=== PATIENT | female | born 1960 | race Caucasian/White ===

== ENCOUNTER → 2018-11-04 | Outpatient (CLI) | payer OTHER, MEDICARE ==
[~2018-11-04] MED LIST: ASPIR 8181 M1 PO; CIPROFLOXACIN500 M1 PO; DIABETA 5MG TABL5 MG; FORTAMET500 MG; GARCINIA CAMBO1 EACH; GLUCOPHAGE XR500 MG PO; GLYBURIDE MICRON6 MG PO; GLYNASE6 MG; HYDROCHLOROTHIA25 M2; LEVOTHYROXIN0.125 M1; LEVOTHYROXINE 0.15MG PO; LIPITOR10 MG PO; LOSARTAN POTAS100 MG PO; METOPROLOL SUCC50 MG PO; NORCO 5-325 TA1 EACH; PROAIR HFA8.5 GM INH; PROZAC20 MG; PYRIDIUM200 MG PO; ZEBETA10 MG; ZIAC 10/6.25 MG10 MG PO
== END ==
LOC: M.ULTRA 15:30
DX: R22.1 Localized swelling, mass and lump, neck (principal)

== ENCOUNTER 2019-07-08 05:18 | Emergency (ER) | payer OTHER, MEDICARE ==
[~2019-07-08] VITALS: Ht 157.5 cm; Wt 165.6 kg
[2019-07-08] MEDS ORDERED: SYMBICORT160 MCG/4. (05:36)
[2019-07-08] MEDS ORDERED: SYNTHROID175 MCG PO (05:37)
[2019-07-08] MEDS ORDERED: PROZAC20 M1 PO (05:37)
[2019-07-08] MEDS ORDERED: MONTELUKAST PO (05:38)
[2019-07-08] MEDS ORDERED: PROTONIX40 M2 PO (05:39)
[2019-07-08] MEDS ORDERED: AMLODIPINE BESY10 MG PO (05:40)
[2019-07-08] MEDS ORDERED: STEGLATRO15 MG PO (05:40)
[2019-07-08 06:10] LABS: ABSOLUTE BASOPHILS 0.1 thou/uL (0.0-0.2); ABSOLUTE EOSINOPHILS 0.4 thou/uL (0.0-0.7); ABSOLUTE LYMPHOCYTES 2.3 thou/uL (0.8-5.3); ABSOLUTE MONOCYTES 0.6 thou/uL (0.0-1.2); ABSOLUTE NEUTROPHILS 9.5 thou/uL (1.6-8.1); BASOPHILS 0.9 %; EOSINOPHILS 2.8 %; HEMATOCRIT 33.4 % (37.0-47.0); HEMOGLOBIN 11.1 gm/dL (12.0-15.0); LYMPHOCYTES 17.5 %; MCH 28.5 pg (26.0-34.0); MCHC 33.3 g/dL (28.0-37.0); MCV 85.6 fL (80.0-100.0); MONOCYTES 4.7 %; MPV 6.7 fl. (7.2-11.1); NUCLEATED RBCS 0 /100WBC; PLATELET COUNT* 326 thou/uL (150-400); POLYS 74.1 %; RDW-CV 16.6 % (10.5-14.5); WBC 12.9 thou/uL (4.0-11.0)
[2019-07-08 06:24] LABS: CALCIUM 8.2 mg/dL (8.5-10.1); CREATININE 0.9 mg/dL (0.6-1.3); POTASSIUM 3.6 mmol/L (3.5-5.1)
[2019-07-08 06:34] LABS: ALBUMIN 3.2 g/dL (3.4-5.0); TOTAL BILIRUBIN 0.6 mg/dL (<0.1-1.0); TOTAL PROTEIN 7.6 g/dL (6.4-8.2)
[2019-07-08 07:02] LABS: APTT 28.1 Seconds (25.0-31.3); PROTIME 10.5 Seconds (9.20-11.50)
[2019-07-08 08:51] LABS: URINE BILIRUBIN NEGATIVE (Negative); URINE BLOOD NEGATIVE (Negative); URINE CLARITY CLEAR; URINE COLOR YELLOW; URINE GLUCOSE-RANDOM NEGATIVE (Negative); URINE KETONES NEGATIVE (Negative); URINE LEUKOCYTES-REFLEX NEGATIVE (Negative); URINE NITRITE-REFLEX NEGATIVE (Negative); URINE PROTEIN 1+ (Negative); URINE UROBILINOGEN 0.2 E.U./dl (0.2-1.0)
[2019-07-08] MEDS ORDERED: MEDROLDOSEPACK PO (10:05)
[2019-07-08] MEDS ORDERED: AMOXICILLIN875 MG PO (10:05)
[2019-07-08 11:54] VITALS: BP 163/62
--- NOTE | 2019-07-08 13:57 | EKG ---
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
== END 2019-07-08 11:55 | disposition still patient (30) ==
LOC: M.ERS 05:18
PROVIDERS: Family Medicine; Personal Emergency Response Attendant
DX: J44.1 Chronic obstructive pulmonary disease with (acute) exacerbation (principal); R59.9 Enlarged lymph nodes, unspecified; I10 Essential (primary) hypertension; E03.9 Hypothyroidism, unspecified; Z98.890 Other specified postprocedural states; Z88.1 Allergy status to other antibiotic agents; Z98.51 Tubal ligation status; Z88.8 Allergy status to other drugs, medicaments and biological substances

== ENCOUNTER 2019-07-10 06:16 | Inpatient (IN) | payer OTHER, MEDICARE ==
[~2019-07-10] VITALS: Ht 157.5 cm; Wt 172.3 kg
[~2019-07-10 06:16] MED LIST changes: +AMLODIPINE BESY10 MG PO; +AMOXICILLIN875 MG PO; +MEDROLDOSEPACK PO; +MONTELUKAST PO; +PROTONIX40 M2 PO; +PROZAC20 M1 PO; +STEGLATRO15 MG PO; +SYMBICORT160 MCG/4.; +SYNTHROID175 MCG PO
[2019-07-10 06:22] VITALS: BP 171/65
[2019-07-10 07:57] LABS: HEMATOCRIT 32.7 % (37.0-47.0); HEMOGLOBIN 10.9 gm/dL (12.0-15.0); MCH 28.8 pg (26.0-34.0); MCHC 33.5 g/dL (28.0-37.0); MCV 86.1 fL (80.0-100.0); MPV 6.7 fl. (7.2-11.1); NUCLEATED RBCS 0 /100WBC; PLATELET COUNT* 355 thou/uL (150-400); RBC 3.79 mil/uL (4.20-5.00); RDW-CV 16.2 % (10.5-14.5); WBC 16.8 thou/uL (4.0-11.0)
[2019-07-10 08:03] LABS: BE 0.6 mmol/L (-2 to +3); PCO2 37.8 mmHg (35.0-45.0); PO2 81.8 mmHg (75.0-100.0); pH 7.434 (7.340-7.450)
[2019-07-10 08:05] LABS: APTT 24.7 Seconds (25.0-31.3); CALCIUM 8.1 mg/dL (8.5-10.1); CREATININE 0.9 mg/dL (0.6-1.3); INR 1.1; PROTIME 10.8 Seconds (9.20-11.50)
[2019-07-10 08:17] LABS: ALBUMIN 3.3 g/dL (3.4-5.0); CK-MB MASS 1.8 ng/mL (<0.5-3.6); MAGNESIUM 1.6 mg/dL (1.8-2.4); TOTAL BILIRUBIN 0.6 mg/dL (<0.1-1.0); TOTAL PROTEIN 7.5 g/dL (6.4-8.2)
[2019-07-10 08:32] LABS: ABSOLUTE EOSINOPHILS 0.2 thou/uL (0.0-0.7); ABSOLUTE LYMPHOCYTES 2.4 thou/uL (0.8-5.3); ABSOLUTE MONOCYTES 0.3 thou/uL (0.0-1.2); ABSOLUTE NEUTROPHILS 13.9 thou/uL (1.6-8.1); PLATELET ESTIMATE ADEQUATE
--- NOTE | 2019-07-10 09:46 | EKG ---
[place] [address] ELECTROCARDIOGRAM REPORT Name: RADHA GREENE Room: [facility]#: [id number] Admission: 07/10/19 Attend Phys: Discharge: Date of : 56 Date of Service: 07/10/19621 Report #: [id number] THIS REPORT FOR: //name// 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
[2019-07-10 10:38] LABS: URINE BILIRUBIN NEGATIVE (Negative); URINE BLOOD NEGATIVE (Negative); URINE CLARITY CLEAR; URINE COLOR YELLOW; URINE GLUCOSE-RANDOM NEGATIVE (Negative); URINE KETONES NEGATIVE (Negative); URINE LEUKOCYTES-REFLEX NEGATIVE (Negative); URINE NITRITE-REFLEX NEGATIVE (Negative); URINE PROTEIN 2+ (Negative); URINE SPECIFIC GRAVITY >= 1.030 (1.005-1.030); URINE UROBILINOGEN 0.2 E.U./dl (0.2-1.0)
[2019-07-10 11:04] LABS: BACTERIA-REFLEX 1-9 Few /HPF (None Seen); CASTS None Seen /LPF (None Seen); CRYSTALS None Seen /LPF (None Seen); SQUAMOUS 0-3 Few /LPF (0-3); URINE RBC 0-2 Rare /HPF (0-2); URINE WBC-REFLEX 0-5 Rare /HPF (0-5)
[2019-07-10 19:49] VITALS: BP 161/65
[2019-07-10 20:12] VITALS: BP 167/62
[2019-07-10 20:30] VITALS: BP 171/75
[2019-07-11] VITALS (8 sets, daily range): BP systolic 104–182; BP diastolic 51–73
[2019-07-11 04:42] LABS: HEMATOCRIT 31.8 % (37.0-47.0); HEMOGLOBIN 10.7 gm/dL (12.0-15.0); MCH 28.8 pg (26.0-34.0); MCHC 33.6 g/dL (28.0-37.0); MCV 85.7 fL (80.0-100.0); MPV 6.6 fl. (7.2-11.1); RBC 3.71 mil/uL (4.20-5.00); RDW-CV 16.2 % (10.5-14.5); WBC 15.3 thou/uL (4.0-11.0)
[2019-07-11 04:53] LABS: CALCIUM 8.3 mg/dL (8.5-10.1); CREATININE 0.9 mg/dL (0.6-1.3); MAGNESIUM 1.6 mg/dL (1.8-2.4)
--- NOTE | 2019-07-11 05:16 | NUR ---
RECEIVED REPORT FROM ED RN. PT TRANSFERRED TO RM 205. PT A&OX4. SEAM SEWER IN PLACE. VSS. PHYSICAL ASSESSMENT COMPLETED AND CHARTED. PT ON O2 AT 2L NC. PT TRACING SR ON TELE. PT UPSTANDBY. PT COMPLAINED OF SOA. O2 SAT 95%-DR BELL MADE AWARE WITH NEW ORDERS. CALL LIGHT WITHIN REACH.
[2019-07-11] MEDS ORDERED: TRULICITY1.5 MG/0.5 SUBQ (06:38)
--- NOTE | 2019-07-11 19:10 | NUR ---
PATIENT RESTING IN BED. UP AD ALEXANDER IN ROOM. AOX4. 2L PER NASAL CANULA. CLEAR LUNG SOUNDS WITH ODCCATIONAL WHEEZES. VSS AND PATINET IN NO APPARENT SIGNS OF DISTRESS T THIS TIME. HOURLY ROUDNING COMPETED FOR PATIENT SAFETY
[2019-07-12 04:50] VITALS: BP 124/61
[2019-07-12 04:51] LABS: HEMATOCRIT 30.7 % (37.0-47.0); HEMOGLOBIN 10.4 gm/dL (12.0-15.0); MCHC 33.8 g/dL (28.0-37.0); MCV 85.6 fL (80.0-100.0); MPV 6.8 fl. (7.2-11.1); RBC 3.59 mil/uL (4.20-5.00); RDW-CV 16.4 % (10.5-14.5); WBC 16.6 thou/uL (4.0-11.0)
[2019-07-12 05:25] LABS: CALCIUM 8.5 mg/dL (8.5-10.1); CREATININE 0.8 mg/dL (0.6-1.3); MAGNESIUM 2.2 mg/dL (1.8-2.4); POTASSIUM 3.8 mmol/L (3.5-5.1)
--- NOTE | 2019-07-12 05:44 | NUR ---
ASSUMED CARE OF PT AFTER REPORT AT 1930. PT A&OX4. VSS. PHYSICAL ASSESSMENT COMPLETED AND CHARTED. PT ON RA. PT TRACING SR/SB ON TELE. PT UPADLIB TO RESTROOM. PT DENIES ANY PAIN OR DISCOMFORT. PT ABLE TO SLEEP WELL ON BED. CALL LIGHT WITHIN REACH.
[2019-07-12 08:00] VITALS: BP 175/60
[2019-07-12 12:03] VITALS: BP 167/69
--- NOTE | 2019-07-12 17:59 | NUR ---
PT TRANSFERRED TO UNIT. I AGREE WITH MORNING ASSESSMENT. WILL CONTINUE TO MONITOR.
[2019-07-12 19:38] VITALS: BP 145/71
[2019-07-13 04:00] VITALS: BP 188/90
--- NOTE | 2019-07-13 05:46 | NUR ---
PATIENT HAS REMAINED ALERT AND ORIENTED X 4 THROUGHOUT THE SHIFT AND RESTING QUIETLY ON HOURLY ROUNDS. UP INDEPENDENTLY IN THE ROOM. PATIENT STATING DOING MUCH BETTER AND HOPES TO GO HOME SOON. RT TX PER ORDER. SOME SHORTNESS OF AIR WITH ACTIVITY BUT RESOLVES QUICKLY AT REST AND NO WHEEZING. VITAL SIGNS STABLE. HTN NOTED EARLY AM BUT THESE WERE TAKEN JUST AFTER RT TX AND ACTIVITY. CONTINUE TO MONITOR.
[2019-07-13 07:20] VITALS: BP 159/68
[2019-07-13 08:57] VITALS: BP 159/68
[2019-07-13 12:37] VITALS: BP 159/68
[2019-07-13] MEDS ORDERED: LEVAQUIN 500 M500 M3 PO (12:40)
[2019-07-13] MEDS ORDERED: PREDNISONE 5 MG5 M1 PO (12:42)
[2019-07-13 13:44] VITALS: BP 159/68
--- NOTE | 2019-07-13 13:45 | NUR ---
PT GIVEN DISCHARGE INFORMATION, CARE NOTES, AND PRESCRIPTIONS. IV REMOVED. PT DENIED ANY QUESTIONS OR CONCERNS AT THIS TIME. PT BELONGINGS GATHERED. PT LEFT VIA WHEELCHAIR WITH NURSING STAFF TO HOME. FALL RISK PRECAUTIONS IN PLACE. HOURLY ROUNDING COMPLETED.
[2019-07-13 13:50] LABS: ABSOLUTE MONOCYTES 0.4 thou/uL (0.0-1.2); ABSOLUTE NEUTROPHILS 14.3 thou/uL (1.6-8.1); BASOPHILS 0.2 %; EOSINOPHILS 0.1 %; HEMATOCRIT 33.5 % (37.0-47.0); HEMOGLOBIN 11.1 gm/dL (12.0-15.0); LYMPHOCYTES 6.3 %; MCH 28.6 pg (26.0-34.0); MCV 86.4 fL (80.0-100.0); MONOCYTES 2.7 %; MPV 7.1 fl. (7.2-11.1); NUCLEATED RBCS 0 /100WBC; PLATELET COUNT* 363 thou/uL (150-400); POLYS 90.7 %; RBC 3.88 mil/uL (4.20-5.00); RDW-CV 16.7 % (10.5-14.5); WBC 15.7 thou/uL (4.0-11.0)
[2019-07-13 14:12] LABS: ALBUMIN 3.4 g/dL (3.4-5.0); CALCIUM 8.5 mg/dL (8.5-10.1); POTASSIUM 3.8 mmol/L (3.5-5.1); TOTAL BILIRUBIN 0.4 mg/dL (<0.1-1.0); TOTAL PROTEIN 7.5 g/dL (6.4-8.2)
== END 2019-07-13 13:46 | disposition home or self-care (01) | DRG 177 ==
LOC: M.ERS 06:16 → M.TBA-ER 09:53 → M.ORTHSURG 09:53 → M.2W 20:52 → M.ORTHSURG 07-12 17:49
PROVIDERS: Emergency Medicine Emergency Medical Services; Internal Medicine; Personal Emergency Response Attendant; ADMIT Internal Medicine
DX: J15.6 Pneumonia due to other Gram-negative bacteria (principal); J96.01 Acute respiratory failure with hypoxia; J44.1 Chronic obstructive pulmonary disease with (acute) exacerbation; E87.2 Acidosis; Z68.44 Body mass index [BMI] 60.0-69.9, adult; J44.0 Chronic obstructive pulmonary disease with (acute) lower respiratory infection; E11.9 Type 2 diabetes mellitus without complications; I10 Essential (primary) hypertension; E66.01 Morbid (severe) obesity due to excess calories; R53.81 Other malaise; M47.9 Spondylosis, unspecified; E03.9 Hypothyroidism, unspecified; F32.9 Major depressive disorder, single episode, unspecified; Z98.891 History of uterine scar from previous surgery; Z79.84 Long term (current) use of oral hypoglycemic drugs; Z79.82 Long term (current) use of aspirin; Z79.899 Other long term (current) drug therapy; Z88.8 Allergy status to other drugs, medicaments and biological substances; Z99.3 Dependence on wheelchair

== ENCOUNTER 2019-10-05 06:27 | Observation (INO) | payer OTHER, MEDICARE ==
[~2019-10-05] VITALS: Ht 152.4 cm; Wt 161.0 kg
--- NOTE | ~2019-10-05 | OP ---
[address] [address] OPERATIVE REPORT Name: RADHA GREENE Room: [facility].#: [id number] Admission: 10/05/19 Attend Phys: Kelvin Jacome DO Discharge: Date of : 56 Report #: [id number] THIS REPORT FOR: //name// cc: BEV RAMOS KEVIN ~ THIS REPORT FOR: //name// CC: Kelvin RAMOS DICTATED BY: Chandrakant Mendoza DO DATE OF SERVICE: 10/05/2019 PREOPERATIVE DIAGNOSES: Biliary dyskinesia with chronic cholecystitis and morbid obesity with a body mass index of 65.5. POSTOPERATIVE DIAGNOSES: Biliary dyskinesia with chronic cholecystitis and morbid obesity with a body mass index of 65.5. SURGEON: Kelvin Jacome DO CO-SURGEON: Colton Mendoza, PGY-5 TACTICAL/MOBILE WATCH OFFICER: Papito Duran, PGY-1. OPERATION PERFORMED: Laparoscopic cholecystectomy with immunofluorescence imaging. ANESTHESIA: General and regional TAP blocks. ESTIMATED BLOOD LOSS: 20 mL. SPECIMENS REMOVED: Gallbladder and contents. COMPLICATIONS: None. DISPOSITION: PACU and then likely discharged home. DESCRIPTION OF PROCEDURE: After appropriate consents were obtained, this patient was taken to the operating room and laid in a supine position. She had SCDs placed on her bilateral lower extremities and 2 safety straps placed across her lap. There was a footboard placed in the bed to help secure for positioning. We also taped her lower legs with a silk tape as well as taped her chest with silk tape. Her arms and wrists were placed out her sides and secured as well. The patient was sedated and intubated [place] [address] OPERATIVE REPORT Name: RADHA GREENE Room: [facility]#: [id number] Admission: 10/05/19 Attend Phys: Kelvin Jacome, DO Discharge: Date of : 56 Report #: [id number]. Her abdomen was then exposed and the anesthesiologist placed bilateral TAP blocks with ease. Her abdomen was then prepped and draped in a standard sterile fashion. A timeout was performed to correctly identify the patient and procedure. She was given perioperative antibiotics at this time. We started by making a supraumbilical midline incision using a #11 blade scalpel. This was carried down through subcutaneous tissue bluntly to encounter the anterior abdominal wall fascia. Once the fascia was encountered, it was scored using electrocautery and grasped between 2 Katina clamps. The peritoneum was then grasped between 2 hemostats and incised sharply using Metzenbaum scissors. We entered into the patient's abdominal cavity bluntly after this. At this point, we placed 2 separate 0 Vicryl stitches at the superior and inferior aspect of her fascial incision. The Edu trocar was then introduced into the patient's abdomen and her abdomen was insufflated to 15 mmHg. We did initial inspection and the patient appeared to have some adhesions to the anterior abdominal wall near our Edu trocar. We elected to place a 5 mm subxiphoid port, which was placed under direct visualization. Once this was placed, we changed the camera into this subxiphoid port and able to visualize the adhesions to anterior abdominal wall in the lower aspect of her abdomen. We then placed 2 right-sided lateral abdominal ports both as well as 5 mm and under direct visualization. Using electrocautery and blunt dissection, we were able to takedown these adhesions on the anterior abdominal wall. At this point, we elevated the liver and placed the patient's head up, left side down position. Once the liver was elevated, we were easily able to see the gallbladder, which appeared to be chronically inflamed as well as having significant cholesterolosis of the wall of the gallbladder. It was grasped and retracted cephalad anteriorly. She had excessive amount of intra-abdominal omentum and with her stomach was somewhat insufflated, so we asked Anesthesia to place an OG tube with good success of a decrease in the size of the stomach. We started on the gallbladder near Maribel's pouch. As the Maribel's pouch was grasped and retracted medially and we started on the lateral aspect of the gallbladder. We made a small incision in the peritoneum overlying the gallbladder and this was taken cephalad until we were able to see the lateral side of the cystic duct. Once we were able to identify the lateral side of the cystic duct, we dissected it out completely and confirmed it using immunofluorescence imaging. We could easily see the gallbladder in light of green as well as the cystic duct. The cystic duct was going directly into the gallbladder and common bile duct as well below this. We then turned our attention more medially and we were able to dissect out the medial side of the cystic duct and skeletonized it completely. Just medial to this, we did see artery coursing along the gallbladder and we were able to dissect it out as well. Once the cystic artery was skeletonized as well, we were able to easily visualize our critical view of safety. Once the critical view of safety was obtained and confirmed using immunofluorescent screen, we placed 2 clips proximally and 1 clip distally on the cystic duct and 1 clip proximally and 1 clip distally on the cystic artery. Both these structures then incised using laparoscopic scissors. The gallbladder was removed from the liver bed carefully using electrocautery. Any minimal amount [facility] [address] [place] [address] OPERATIVE REPORT Name: RADHA GREENE Room: [facility].#: [id number] Admission: 10/05/19 Attend Phys: Kelvin Jacome DO Discharge: Date of : 56 Report #: [id number] of bleeding that was present from the liver bed was adequately controlled using electrocautery. Once the gallbladder was completely removed from the liver bed, it was placed within the EndoCatch pouch. We did a reinspection of our liver bed as well as our clips. There was no further bleeding from the liver bed and our clips appeared to be in place and intact. There was no oozing or bleeding from the cystic duct or cystic artery at this time. The liver was allowed to return to normal anatomical position and we placed omentum within the gallbladder fossa. All of our trocars were then removed under direct visualization. There was no oozing or bleeding from either trocar sites at this point. The patient's abdomen was allowed to completely desufflate and we removed the Edu trocar and then the gallbladder within EndoCatch pouch from the supraumbilical incision site. This was passed off as specimen to be sent to Pathology for further review. The previously placed 0 Vicryl stitches were used as retraction sutures in order to elevate the fascia and we placed 2 separate [id number]-[id number] 0 Vicryl stitches within the fascia and reapproximated. The previously placed 0 Vicryl sutures were then tied down as well. These were all cut and we achieved adequate reapproximation of the anterior abdominal wall fascia. The subcutaneous tissue was closed using a 3-0 Vicryl stitch in an inverted interrupted fashion. The skin was closed using a running 4-0 Monocryl suture in a subcuticular fashion. The skin incisions that were remaining were the port sites and these were also closed using the same 4-0 Monocryl stitch in an inverted interrupted fashion. The patient's abdomen was cleaned and dried adequately. We placed skin glue to act as a dressing and the patient was allowed to awake and subsequently extubated in the OR without difficulty. Dr. Jacome was present and scrubbed for entire procedure. All counts were correct x 2 at the end of this procedure. By: [id number] Jacome DO /nt
[~2019-10-05 06:27] MED LIST changes: +BENTYL 20 MG TA20 M1 PO; +LANTUS SUBQ; +LEVAQUIN 500 M500 M3 PO; +PREDNISONE 5 MG5 M1 PO; +TRULICITY1.5 MG/0.5 SUBQ
[2019-10-05 06:50] LABS: HEMATOCRIT 40.5 % (37.0-47.0); HEMOGLOBIN 13.4 gm/dL (12.0-15.0); MCHC 33.1 g/dL (28.0-37.0); MCV 84.5 fL (80.0-100.0); MPV 6.9 fl. (7.2-11.1); RBC 4.8 mil/uL (4.20-5.00); RDW-CV 14.9 % (10.5-14.5); WBC 13.5 thou/uL (4.0-11.0)
[2019-10-05 06:56] LABS: CALCIUM 8.7 mg/dL (8.5-10.1); POTASSIUM 4.1 mmol/L (3.5-5.1)
[2019-10-05] MEDS ORDERED: OXYCODONE HCL 55 MG PO (10:04)
[2019-10-05 16:22] VITALS: BP 139/64
--- NOTE | 2019-10-05 17:19 | NUR ---
PT A&Ox4. VITALS STABLE. IV PATENT. PAIN CONTROLLED. TOLERATING FOOD. UP WITH STB ASSIST. ON 1LO2 AND CAPNO. LAP SITES C/D/I. PILLOW USED FOR COMPRESSION. POSSIBLE DC TOMORROW. CALL LIGHT WITHIN REACH. WILL CONTINUE TO MONTIOR.
[2019-10-05 19:30] VITALS: BP 156/70
[2019-10-06 00:02] VITALS: BP 165/82
[2019-10-06 06:10] VITALS: BP 137/97
--- NOTE | 2019-10-06 07:47 | NUR ---
PATIENT HAS SLEPT WELL THROUGHOUT MOST OF THE NIGHT. VSS ON 1L 02 VIA NASAL CANNULA. PAIN WELL CONTROLLED. MEDICATIONS GIVEN ORDERED. LAP SITES X 4 ARE WELL APPROXIMATED AND BOBBI. IV IN LEFT HAND-LR @ 40ML/HR. PATIENT INSTRUCTED TO USE CALL LIGHT WHEN NEEDING ASSISTANCE. HOURLY ROUNDS MADE. WILL CONTINUE WITH PLAN OF CARE AND NURSING TO [facility].
[2019-10-06 08:00] VITALS: BP 153/61
[2019-10-06 12:04] VITALS: BP 144/79
[2019-10-06 12:15] VITALS: BP 144/79
--- NOTE | 2019-10-06 12:39 | NUR ---
PT A&OX4 VSS. PT UP AD ALEXANDER, GAIT STEADY. OP SITES X4, DERMABOND, C/D/I. NO REDNESS/DRAINAGE OBSERVED. PT DENIES N/V. NO C/O PAIN AT THIS TIME. PT ON ROOM AIR, SAT 97% NO C/O SOB. IV TO L HAND DC'D PRIOR TO LEAVING UNIT. NO REDNESS/SWELLING NOTED AT SITE. PT IS ACCUCHECK, NO INSULIN INDICATED PER MAR. PT DRESSED INDEPENDENTLY W/O DIFFICULTY. PT CONTINENT OF B/B. PT STATES UNDERSTANDING OF DC INSTRUCTIONS AND RX INFORMATION PROVIDED. PT ESCORTED TO EXIT IN WC BY NURSING STAFF. PT LEAVES W/ALL PERSONAL BELONGINGS.
--- NOTE | 2019-10-07 13:08 | PATH ---
[address] [address] PATHOLOGY RPT PROCEDURE Name: RHONA GREENE Room: [address] Stan Goff#: [id number] Admission: 10/05/19 Date of : 56 Discharge: 10/06/19 Report #: [id number] Path Case #: [id number] [facility] Accession Number: [id number] . 01 Material submitted: . gallbladder - GALLBLADDER . 01 Clinical history: . Biliary dyskinesia . 02 Diagnosis: Gallbladder: - Chronic cholecystitis with cholesterolosis and benign sentinel lymph node. (SHAN:bear; 10/07/2019) MBR 10/07/2019 1229 Local . 02 Electronically signed: . Miguelangel Bennett MD, Pathologist NPI- [id number] . 01 Gross description: . The specimen is received in formalin labeled "Greene, Rhona, gallbladder" and consists of an intact green abraham wrinkled gallbladder measuring 7.5 x 2.6 x 2.0 cm. The margin is inked black. Opening reveals a lumen filled with tenacious green bile and no calculi. The mucosa is green with extensive yellow stippling and an average wall thickness of 0.1 cm. No masses are identified. Adjacent to the gallbladder neck is a small 0.3 cm lymph node candidate. Linux Support Engineer sections are submitted in A1 to include the intact lymph node. (SDY; 10/06/2019) SYU/SYU 10/07/2019 1228 Local . 02 Pathologist provided ICD-10: K80.10 . 02 CPT . 818924 Specimen Comment: A courtesy copy of this report has been sent to [phone], [phone] Specimen Comment: [phone] Specimen Comment: Report sent to / DR RAMOS Performed at: [address] [id number] MD Renan Mckeon MD Phone: [phone] Performed at: [address] [place] [address] PATHOLOGY RPT PROCEDURE Name: RHONA GREENE ASIA Room: [address] Stan Goff#: [id number] Admission: 10/05/19 Date of : 56 Discharge: 10/06/19 Report #: [id number] Path Case #: [id number] [address] [place] John [id number] MD Miguelangel Bennett MD Phone: [phone]
== END 2019-10-06 12:40 | disposition home or self-care (01) ==
LOC: M.SUR 06:27 → M.3W 12:15 → M.TBA 12:15 → M.3W 12:18 → M.SUR 14:42 → M.3W 10-06 12:40
PROVIDERS: ADMIT Surgery
DX: K81.1 Chronic cholecystitis (principal); K82.8 Other specified diseases of gallbladder; E66.01 Morbid (severe) obesity due to excess calories; Z20.828 Contact with and (suspected) exposure to other viral communicable diseases; Z68.44 Body mass index [BMI] 60.0-69.9, adult; J44.9 Chronic obstructive pulmonary disease, unspecified; I10 Essential (primary) hypertension; F32.9 Major depressive disorder, single episode, unspecified; E11.9 Type 2 diabetes mellitus without complications; E03.9 Hypothyroidism, unspecified; E87.2 Acidosis; J06.9 Acute upper respiratory infection, unspecified; J98.9 Respiratory disorder, unspecified; R09.02 Hypoxemia

== ENCOUNTER 2019-10-28 17:00 | Observation (INO) | payer OTHER, MEDICARE ==
[~2019-10-28] VITALS: Ht 157.5 cm; Wt 158.2 kg
[~2019-10-28 17:00] MED LIST changes: -MONTELUKAST PO; +OXYCODONE HCL 55 MG PO; +SINGULAIR 10 MG10 MG PO
[2019-10-28 17:05] VITALS: BP 197/76
[2019-10-28 17:28] LABS: ABSOLUTE BASOPHILS 0.2 thou/uL (0.0-0.2); ABSOLUTE EOSINOPHILS 0.3 thou/uL (0.0-0.7); ABSOLUTE LYMPHOCYTES 2.2 thou/uL (0.8-5.3); ABSOLUTE MONOCYTES 0.7 thou/uL (0.0-1.2); ABSOLUTE NEUTROPHILS 8.8 thou/uL (1.6-8.1); BASOPHILS 1.3 %; EOSINOPHILS 2.7 %; HEMATOCRIT 38.7 % (37.0-47.0); LYMPHOCYTES 18.3 %; MCH 28.1 pg (26.0-34.0); MCHC 33.7 g/dL (28.0-37.0); MCV 83.3 fL (80.0-100.0); MONOCYTES 5.7 %; MPV 7.3 fl. (7.2-11.1); NUCLEATED RBCS 0 /100WBC; PLATELET COUNT* 398 thou/uL (150-400); RBC 4.65 mil/uL (4.20-5.00); RDW-CV 15.4 % (10.5-14.5); WBC 12.3 thou/uL (4.0-11.0)
[2019-10-28 17:34] LABS: APTT 31.6 Seconds (25.0-31.3); CALCIUM 8.3 mg/dL (8.5-10.1); POTASSIUM 3.8 mmol/L (3.5-5.1); PROTIME 10.3 Seconds (9.20-11.50)
[2019-10-28 17:38] LABS: ALBUMIN 3.3 g/dL (3.4-5.0); TOTAL BILIRUBIN 0.2 mg/dL (<0.1-1.0); TOTAL PROTEIN 7.8 g/dL (6.4-8.2)
[2019-10-28 19:45] VITALS: BP 176/75
[2019-10-28 20:00] VITALS: BP 174/57
[2019-10-28 22:34] LABS: AMP/METHAMP Negative (Negative); BARBITURATES Negative (Negative); BENZODIAZEPINES Negative (Negative); COCAINE Negative (Negative); METHADONE Negative (Negative); OPIATES Negative (Negative); PCP Negative (Negative); THC Negative (Negative)
[2019-10-29] VITALS: BP 152/58
--- NOTE | 2019-10-29 03:06 | NUR ---
PT ALERT ORIENTED. NIHSS 2. TELEMETRY SHOWS SR. DENIES PAIN. WCTM
[2019-10-29 04:00] VITALS: BP 150/60
[2019-10-29 04:20] LABS: ABSOLUTE BASOPHILS 0.1 thou/uL (0.0-0.2); ABSOLUTE EOSINOPHILS 0.3 thou/uL (0.0-0.7); ABSOLUTE LYMPHOCYTES 2.9 thou/uL (0.8-5.3); ABSOLUTE MONOCYTES 0.8 thou/uL (0.0-1.2); ABSOLUTE NEUTROPHILS 7.7 thou/uL (1.6-8.1); BASOPHILS 0.6 %; EOSINOPHILS 2.6 %; HEMATOCRIT 37.6 % (37.0-47.0); HEMOGLOBIN 12.3 gm/dL (12.0-15.0); LYMPHOCYTES 24.5 %; MCH 27.6 pg (26.0-34.0); MCHC 32.8 g/dL (28.0-37.0); MCV 84.2 fL (80.0-100.0); MONOCYTES 6.9 %; MPV 7.3 fl. (7.2-11.1); NUCLEATED RBCS 0 /100WBC; PLATELET COUNT* 359 thou/uL (150-400); POLYS 65.4 %; RBC 4.46 mil/uL (4.20-5.00); RDW-CV 15.2 % (10.5-14.5); WBC 11.7 thou/uL (4.0-11.0)
[2019-10-29 04:30] LABS: CALCIUM 8.4 mg/dL (8.5-10.1); CREATININE 0.9 mg/dL (0.6-1.3); POTASSIUM 3.4 mmol/L (3.5-5.1)
[2019-10-29 04:35] LABS: CHOLESTEROL 178 mg/dL (<200); HDL CHOLESTEROL 37 mg/dL (>40); LDL CHOLESTEROL 101 mg/dL (<100); TC:HDL 4.8 Ratio (Not establshd); TRIGLYCERIDE 200 mg/dL (<150); VLDL 40 mg/dL (<40)
[2019-10-29 04:43] LABS: SERUM ASSESSMENT CLEAR
--- NOTE | 2019-10-29 05:06 | NUR ---
PT GETTING UP TO BSC WITH MINIMAL ASSIST OF ONE. SPEACH THERAPY CONSULTED.
[2019-10-29 08:00] VITALS: BP 144/79
--- NOTE | 2019-10-29 08:27 | EKG ---
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
[2019-10-29 12:03] VITALS: BP 166/75
--- NOTE | 2019-10-29 14:16 | 2DMMODE ---
[place] [address] 2 D/M-MODE ECHOCARDIOGRAM Name: RADHA GREENE Room: [address] M.R.#: [id number] Admission: 10/28/19 Attend Phys: Angel Luis Major, Discharge: Date of : 56 Date of Service: 10/29/19 1414 Report #: [id number] THIS REPORT FOR: cc: BEV RAMOS,BEV Urban,Carlos Ramírez MD [facility] ~ APPROVED REPORT Study performed: 10/29/2019 11:25:08 EXAM: Comprehensive 2D, Doppler, and color-flow Echocardiogram Patient Location: In-Patient BSA: 2.41 HR: 68 bpm BP: 150/60 mmHg Other Information Study Quality: Technically Limited Technically limited study due to body habitus, inability to position patient. Indications CVA/TIA Echo Enhancing Agent Indication: Rule out Shunt Agent(s) / Amount(s) Used: Agitated Saline cc 2D Dimensions IVSd: 11.74 (7-11mm) LVOT Diam: 20.66 (18-24mm) LVDd: 49.02 mm PWd: 11.56 (7-11mm) Ascending Ao: 29.17 (22-36mm) LVDs: 25.81 (25-40mm) Aortic Root: 28.78 mm Volumes Left Atrial Volume (Systole) LA ESV Index: 13.00 mL/m2 Aortic Valve AoV Peak Mesfin.: 1.56 m/s AO Peak Gr.: 9.79 mmHg LVOT Max P.46 mmHg AO Mean Gr.: 5.53 mmHg LVOT Mean P.41 [place] [address] 2 D/M-MODE ECHOCARDIOGRAM Name: GREENERADHA Room: [address] M.R.#: [id number] Admission: 10/28/19 Attend Phys: Angel Luis Major, Discharge: Date of : 56 Date of Service: 10/29/19 1414 Report #: [id number] LVOT Max V: 1.06 m/s AO V2 VTI: 29.99 cm LVOT Mean V: 0.74 m/s ARSLAN (VTI): 3.08 cm2 LVOT V1 VTI: 27.59 cm Mitral Valve E/A Ratio: 1.60 MV Decel. Time: 194.76 ms MV E Max Mesfin.: 0.97 m/s MV PHT: 56.48 ms MVA (PHT): 3.90 cm2 TDI E/Lateral E': 13.86 E/Medial E': 8.82 Medial E' Mesfin.: 0.11 m/s Lateral E' Mesfin.: 0.07 m/s Pulmonary Valve PV Peak Mesfin.: 1.12 m/s PV Peak Gr.: 4.98 mmHg Tricuspid Valve RAP Estimate: 5.00 mmHg TR Peak Gr.: 10.41 mmHg RVSP: 15.41 mmHg PA Pressure: 15.41 mmHg Left Ventricle The left ventricle is normal size. There is normal LV segmental wall motion. There is normal left ventricular wall thickness. Left ventricular systolic function is normal. LVEF is 60-65%. Left ventricular filling pattern is normal for age. Right Ventricle The right ventricle is normal size. The right ventricular systolic function is normal. Atria The left atrium size is normal. Injection of bubbles documented no interatrial shunt. The right atrium size is normal. Aortic Valve The aortic valve is normal in structure. No aortic regurgitation is present. There is no aortic valvular stenosis. Mitral Valve The mitral valve is normal in structure. Trace mitral regurgitation. No evidence of mitral [place] [address] 2 D/M-MODE ECHOCARDIOGRAM Name: RADHA GREENE Room: [address] MHalleyRHalley#: [id number] Admission: 10/28/19 Attend Phys: Angel Luis Major, Discharge: Date of : 56 Date of Service: 10/29/19 1414 Report #: [id number] Tricuspid Valve The tricuspid valve is normal in structure. Trace tricuspid regurgitation. Pulmonic Valve The pulmonary valve is normal in structure. There is no pulmonic valvular regurgitation. Great Vessels The aortic root is normal in size. IVC is normal in size and collapses >50% with inspiration. Pericardium There is no pericardial effusion. <Conclusion> The left ventricle is normal size. There is normal left ventricular wall thickness. Left ventricular systolic function is normal. LVEF is 60-65%. Left ventricular filling pattern is normal for age. Trace mitral regurgitation. Trace tricuspid regurgitation. IVC is normal in size and collapses >50% with inspiration. Injection of bubbles documented no interatrial shunt. <ELECTRONICALLY SIGNED> By: Carlos Urban MD, FACC 10/29/19 1414 141 1414 Carlos Urban MD, FACC /INF
[2019-10-29 16:55] VITALS: BP 152/70
--- NOTE | 2019-10-29 19:12 | NUR ---
ASSUMED PT CARE AT 0730. ASSESSMENT COMPLETED CHARTED. ABLE TO MAKE NEEDS KNOWN. NO C/O PAIN OR DISCOMFORT. UP WITH SBA. SLURRED SPEECH AND LEFT SIDED FACIAL DROOP NOTED. ST SEEN PT AND WILL TAKE ONE DRINK AT A TIME TO REDUCE ASPIRATION. WILL CONTINUE TO MONITOR.
[2019-10-29 20:28] VITALS: BP 151/51
[2019-10-30] VITALS: BP 182/69
[2019-10-30 02:08] LABS: GLYCOHEMOGLOBIN (HGB A1C) 6.9 % (4.8-5.6)
[2019-10-30 04:00] VITALS: BP 166/52
--- NOTE | 2019-10-30 05:48 | NUR ---
ASSUMED CARE OF PT 10/29/19 AT APPROX 1930. PT A&OX4, ON ROOM AIR, VSS. CT ANGIO COMPLETED APPROX 0410, BED SIDE SWALLOW CHECKED AT 0415 WITH NO ISSUES NOTED, MILLY IN RADIOLOGY NOTIFIED THIS NURSE OF CRITICAL FINDING AT 0439, CALLED FOR PAGE TO DR. BRYANT AT 0442, READ RADIOLOGY REPORT IMPRESSION NOTES TO DR. BRYANT VIA TELEPHONE AT 0445 - PHYSICIAN PLACED NEW ORDERS. 0900 ASPIRIN GIVEN AT APPROX AT 0540 PER ORDER. WILL CONTINUE WITH CARE PLAN AND MONITORING OF PT.
[2019-10-30 08:00] VITALS: BP 168/57
[2019-10-30 10:20] LABS: ALBUMIN 3.2 g/dL (3.4-5.0); CALCIUM 8.5 mg/dL (8.5-10.1); CREATININE 0.9 mg/dL (0.6-1.3); POTASSIUM 3.5 mmol/L (3.5-5.1); TOTAL BILIRUBIN 0.4 mg/dL (<0.1-1.0); TOTAL PROTEIN 7.5 g/dL (6.4-8.2)
[2019-10-30 14:48] VITALS: BP 132/53
--- NOTE | 2019-10-30 15:48 | NUR ---
PT.RESTS IN BED. ANSWERS QUESTIONS APPROPRIATLY, ALTHOUGH SLOW AT TIMES. SHE LIVES WITH HER AND SON. SHE SAID SHE IS ABLE TO BATHE AND DRESS SELF. 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 SHE HOLDS ON TO FURNITURE TO WALK ABOUT THE HOUSE. NO HX OF HH. CALLED WHILE CM WAS IN ROOM. CM SPOKE WITH HIM. HE SAID HE WAS FINE WITH BRINGING PT.HOME. HE SAID SHE DOESN'T WALK FOR FAR DISTANCES AT HOME. HAS A SCOOTER TO USE OUTSIDE. DOESN'T HAVE A WALKER. THERAPY DID NOT RECOMMEND ONE. EXPLAINED USE OF [employer] WITH PTS INSURANCE. THEY WILL SET UP HH FOR PT.AND CALL HER TO INFORM OF AGENCY THAT WILL SEE HER. HE UNDERSTOOD. WAITING FOR NEURO TO COME TO CLEAR PT.FOR DISCHARGE.
[2019-10-30 16:27] VITALS: BP 132/53
[2019-10-30] MEDS ORDERED: ASA81BEC PO (17:44)
[2019-10-30 17:54] VITALS: BP 154/62
--- NOTE | 2019-10-30 18:30 | NUR ---
ASSUMED PT CARE AT 0730. ASSESSMENT COMPLETED CHARTED. ABLE TO MAKE NEEDS KNOWN. NO C/O PAIN OR DISCOMFORT. UP WITH SBA. PT/OT/ST DISCHARGED PT, NEURO UPDATED MEDICATION AND THEN D/C APPROVED. DISCHARGE WENT OVER WITH PT AND PT LEFT TO HUSBANDS CAR AT AROUND 1820. ALL BELONGINGS TAKEN WITH PT. NO COMMENTS, QUESTIONS, OR CONCERNS NOTED.
--- NOTE | 2019-11-04 18:04 | CON ---
[address] [address] CONSULTATION Name: RADHA GREENE Room: [address] Stan Goff#: [id number] Admission: 10/28/19 Attend Phys: Angel Luis Major MD Discharge: 10/30/19 Date of : 56 Report #: [id number] THIS REPORT FOR: //name// cc: BEV RAMOS KEVIN ~ THIS REPORT FOR: //name// CC: Angel Luis RAMOS HISTORY OF PRESENT ILLNESS: This is a 59-year-old female patient who was evaluated by me for slurred speech and maybe weakness on the left side of the face. The history is very poor. I reviewed the records in the computer and it looks like the patient came via outside the window for any intervention and she was admitted. Her history is extremely poor. She said she does not know how long the weakness is going-on on the left side. This is mainly in the face. She never had Bennett's palsy. REVIEW OF SYSTEMS: Positive for cholecystitis and cholecystectomy. She does have a history of anxiety and depression. She has a history of hypothyroidism, diabetes, hypertension, tubal ligation, and depression. This was her relevant 14-point review of system. PAST MEDICAL HISTORY: Positive for cholecystectomy. FAMILY HISTORY: Negative for any early age stroke. SOCIAL HISTORY: The patient does not smoke or drink any alcohol. PHYSICAL EXAMINATION: Indicate she is alert. She is responsive. She can follow simple commands. She thinks her speech is still slurred, but she does have weakness on the left side of the face, which is a kind of unusual weakness. For rest of it, she has generalized weakness. I do not think there is any sensory loss on the face, but I cannot tell for sure. There is no carotid bruit. There is no meningeal sign. Blood pressure is 166/75, respirations 22, pulse is 70, temperature is 98.2. LABORATORY DATA: White count is somewhat raised at 11.7 for some reason. IMPRESSION: Pretty difficult to form in this patient. I agree with evaluation for transient ischemic attack or stroke, but her presentation is somewhat unusual. If stroke is excluded, the possibility of Bennett's palsy can be considered. I would like to get an MRI done and I will order that and I hope to do it today. Once MRI is done, then we need to decide about the further management. I discussed all of it with the patient in detail and she wants to proceed with it. More than 50 minutes of time was [place] [address] CONSULTATION Name: RADHA GREENE ASIA Room: [address] Stan Goff#: [id number] Admission: 10/28/19 Attend Phys: Angel Luis Major MD Discharge: 10/30/19 Date of : 56 Report #: [id number] patient and majority was spent counseling and coordinating including reviewing the records and her studies. <ELECTRONICALLY SIGNED> By: Luis Eduardo Sales MD 11/04/19 1804 [id number] Eduardo Sales MD /nt
== END 2019-10-30 18:34 | disposition home or self-care (01) ==
LOC: M.ERS 17:00 → M.2W 17:56 → M.TBA-ER 17:56 → M.ERS 19:46 → M.2W 20:14
PROVIDERS: Family Medicine; Psychiatry & Neurology Neuromuscular Medicine; ADMIT Internal Medicine; ATTEND Internal Medicine
DX: R47.81 Slurred speech (principal); I10 Essential (primary) hypertension; E11.9 Type 2 diabetes mellitus without complications; E03.9 Hypothyroidism, unspecified; F32.9 Major depressive disorder, single episode, unspecified; E66.01 Morbid (severe) obesity due to excess calories